=== PATIENT | female | born 1965 | race Two or more races ===

== ENCOUNTER 2023-03-31 06:57 | Inpatient (IN) | payer BC ==
[2023-03-31] MEDS ORDERED: SODIUM CHLORIDE 0.9% 1,000 ML IV STA (07:44)
[2023-03-31] MEDS ORDERED: ONDANSETRON 4 MG/2 ML VIAL IVP STA (07:44)
[2023-03-31] MEDS ORDERED: MORPHINE SULFATE 4 MG/ML SYRINGE IVP STA (07:45)
[2023-03-31] MEDS ORDERED: FAMOTIDINE 20 MG/2 ML VIAL IV STA (07:45)
--- NOTE | 2023-03-31 07:47 | ED ---
General Adult HPI - General Chief complaint: Abdominal Pain Stated complaint: Stomach pain Time Seen by Provider: 03/31/23 07:24 Source: patient, RN notes reviewed Mode of arrival: ambulatory Limitations: no limitations - History of Present Illness Initial comments: Patient is a pleasant 58-year-old female presenting to the emergency department with concerns for abdominal pain. Onset of symptoms was around 11 last night. Patient has had nausea with several episodes of vomiting. Patient does have ostomy bag secondary to history of metastatic bladder cancer to the colon. Patient states no change in output from her ostomy bag. No fevers. Symptoms are not chronic. - Related Data Allergies Allergy/AdvReac Type Severity Reaction Status Date / Time No Known Allergies Allergy Verified 03/31/23 07:18 Review of Systems ROS Statement: Those systems with pertinent positive or pertinent negative responses have been documented in the HPI. ROS Other: All systems not noted in ROS Statement are negative. Constitutional: Denies: fever Eyes: Denies: eye pain ENT: Denies: ear pain Respiratory: Denies: cough Cardiovascular: Denies: chest pain Endocrine: Denies: fatigue Gastrointestinal: Reports: as per HPI, abdominal pain, nausea, vomiting Musculoskeletal: Denies: back pain Past Medical History Past Medical History: Cancer Additional Past Medical History / Comment(s): bladder cancer History of Any Multi-Drug Resistant Organisms: None Reported Past Surgical History: Bowel Resection Additional Past Surgical History / Comment(s): ileostomy and urostomy Past Psychological History: Anxiety, Depression Smoking Status: Current every day smoker Past Alcohol Use History: Occasional Past Drug Use History: None Reported General Exam Limitations: no limitations General appearance: alert, in no apparent distress Head exam: Present: normocephalic Eye exam: Present: normal appearance Neck exam: Present: normal inspection Respiratory exam: Present: normal lung sounds bilaterally Cardiovascular Exam: Present: regular rate, normal rhythm Expanded Peripheral pulses: 2+: Dorsalis Pedis (R), Dorsalis Pedis (L) GI/Abdominal exam: Present: soft, tenderness (Mild tenderness epigastric. Mild to moderate tenderness lower abdomen), normal bowel sounds. Absent: distended, guarding, rebound, rigid, pulsatile mass Extremities exam: Present: normal inspection Neurological exam: Present: alert Psychiatric exam: Present: normal affect, normal mood Skin exam: Present: normal color Course Vital Signs 03/31/23 07:12 Temperature 98.9 F Pulse Rate 89 Respiratory 22 Rate Blood Pressure 168/79 O2 Sat by Pulse 99 Oximetry Medical Decision Making - Medical Decision Making Was pt. sent in by a medical professional or institution (SIRENA Waite, TRANSFORMER ASSEMBLY SUPERVISOR, urgent care, hospital, or intermediate...) When possible be specific @ -No Did you speak to anyone other than the patient for history (EMS, parent, family, police, friend...)? What history was obtained from this source @ - is present and helps provide history including previous surgeries out of state Did you review nursing and triage notes (agree or disagree)? Why? @ -I reviewed and agree with nursing and triage notes Were old charts reviewed (outside hosp., previous admission, EMS record, old EKG, old radiological studies, urgent care reports/EKG's, intermediate records)? Report findings @ -No old charts available when I did try to review Differential Diagnosis (chest pain, altered mental status, abdominal pain women, abdominal pain men, vaginal bleeding, weakness, fever, dyspnea, syncope, headache, dizziness, GI bleed, back pain, seizure, CVA, palpatations, mental health, musculoskeletal)? @ -Differential Abdominal Pain Women: Appendicitis, Cholecystitis, diverticulosis, ischemic bowel, pancreatitis, hepatitis, UTI, gastroenteritis, AAA, incarcerated hernia, bowel obstruction, constipation, inflammatory bowel, hepatitis, peptic ulcer disease, splenic infarction, perforated viscus, vulvitis, ovarian torsion, PID, kidney stone, placenta abruption, this is not meant to be an all-inclusive list EKG interpreted by me (3pts min.). @ -As above X-rays interpreted by me (1pt min.). @ -None done CT interpreted by me (1pt min.). @ -Computed tomography scan shows bowel obstruction. This was discussed with radiologist. Dr. Bar U/S interpreted by me (1pt. min.). @ -None done What testing was considered but not performed or refused? (CT, X-rays, U/S, labs)? Why? @ -None What meds were considered but not given or refused? Why? @ -None Did you discuss the management of the patient with other professionals (professionals i.e. SIRENA Waite, TRANSFORMER ASSEMBLY SUPERVISOR, lab, RT, psych nurse, social work instructor, power system engineer, teacher, staff command and control officer, case investigator)? Give summary @ -Case was discussed with Dr. Bar regarding CT results. Case also discussed with Dr. Prado, who will admit covering hospital call Was smoking cessation discussed for >3mins.? @ -No Was critical care preformed (if so, how long)? @ -No Were there social determinants of health that impacted care today? How? (Homelessness, low income, unemployed, alcoholism, drug addiction, transportation, low edu. Level, literacy, decrease access to med. care, alf, rehab)? @ -No Was there de-escalation of care discussed even if they declined (Discuss DNR or withdrawal of care, Hospice)? DNR status @ -No What co-morbidities impacted this encounter? (DM, HTN, Smoking, COPD, CAD, Cancer, CVA, ARF, Chemo, Hep., AIDS, mental health diagnosis, sleep apnea, morbid obesity)? @ -None Was patient admitted / discharged? Hospital course, mention meds given and route, prescriptions, significant lab abnormalities, going to OR and other pertinent info. @ -Patient reevaluated and feeling better. Discomfort and nausea and mild. Patient and family updated on results and plan. Patient will be admitted with surgical consult. Admission orders written. Undiagnosed new problem with uncertain prognosis? @ -No Drug Therapy requiring intensive monitoring for toxicity (Heparin, Nitro, Insulin, Cardizem)? @ -No Were any procedures done? @ -No Diagnosis/symptom? @ -Small bowel obstruction Acute, or Chronic, or Acute on Chronic? @ -Acute Uncomplicated (without systemic symptoms) or Complicated (systemic symptoms)? @ -default Side effects of treatment? @ -No Exacerbation, Progression, or Severe Exacerbation? @ -No Poses a threat to life or bodily function? How? (Chest pain, [place], [place], pneumonia, PE, COPD, DKA, ARF, appy, cholecystitis, CVA, Diverticulitis, Homicidal, Suicidal, threat to staff... and all critical care pts) @ -Threat to bowel function and concern for potential complications and infection if symptoms worsen. - Lab Data Result diagrams: 03/31/23 08:00 03/31/23 08:00 Lab Results 03/31/23 03/31/23 03/31/23 Range/Units 08:00 08:00 08:00 WBC 12.1 H (3.8-10.6) k/uL RBC 5.38 (3.80-5.40) m/uL Hgb 17.2 H (11.4-16.0) gm/dL Hct 51.6 H (34.0-46.0) % MCV 96.0 (80.0-100.0) fL MCH 32.0 (25.0-35.0) pg MCHC 33.4 (31.0-37.0) g/dL RDW 12.9 (11.5-15.5) % Plt Count 293 (150-450) k/uL MPV 7.8 PT 9.7 (9.0-12.0) sec INR 0.9 (<1.2) APTT 23.2 (22.0-30.0) sec Sodium 143 (137-145) mmol/L Potassium 5.1 (3.5-5.1) mmol/L Chloride 102 (98-107) mmol/L Carbon Dioxide 26 (22-30) mmol/L Anion Gap 15 mmol/L BUN 34 H (7-17) mg/dL Creatinine 1.25 H (0.52-1.04) mg/dL Est GFR (CKD-EPI)AfAm 54 (>60 ml/min/1.73 sqM) Est GFR (CKD-EPI)NonAf 47 (>60 ml/min/1.73 sqM) Glucose 201 H (74-99) mg/dL Calcium 11.3 H (8.4-10.2) mg/dL Total Bilirubin 0.6 (0.2-1.3) mg/dL AST 40 H (14-36) U/L ALT 27 (4-34) U/L Alkaline Phosphatase 130 H (38-126) U/L Total Protein 9.1 H (6.3-8.2) g/dL Albumin 5.4 H (3.5-5.0) g/dL Amylase 137 H (30-110) U/L Lipase 235 (23-300) U/L Disposition Clinical Impression: Small bowel obstruction Disposition: ADMITTED IP TO THIS [facility] Condition: Serious Is patient prescribed a controlled substance at d/c from ED?: No Referrals: Nonstaff,Physician [Primary Care Provider] - 1-2 days Time of Disposition: 09:01
[2023-03-31 08:35] LABS: HCT 51.6 % (34.0-46.0); HGB 17.2 gm/dL (11.4-16.0); INR 0.9 (<1.2); MCHC 33.4 g/dL (31.0-37.0); Mean Platelet Volume 7.8; Partial Thromboplastin Time 23.2 sec (22.0-30.0); Platelet Count 293 k/uL (150-450); Prothrombin Time 9.7 sec (9.0-12.0); RBC 5.38 m/uL (3.80-5.40); RDW 12.9 % (11.5-15.5); WBC 12.1 k/uL (3.8-10.6)
[2023-03-31 08:36] LABS: ALT 27 U/L (4-34); African American GFR (CKD) 54 (>60 ml/min/1.73 sqM); Albumin 5.4 g/dL (3.5-5.0); Amylase 137 U/L (30-110); Blood Urea Nitrogen 34 mg/dL (7-17); Carbon Dioxide 26 mmol/L (22-30); Glucose 201 mg/dL (74-99); Lipase 235 U/L (23-300); Non-African American GFR(CKD) 47 (>60 ml/min/1.73 sqM); Potassium 5.1 mmol/L (3.5-5.1); Sodium 143 mmol/L (137-145); Total Bilirubin 0.6 mg/dL (0.2-1.3); Total Protein 9.1 g/dL (6.3-8.2)
[2023-03-31 08:38] LABS: AST 40 U/L (14-36); Alkaline Phosphatase 130 U/L (38-126); Anion Gap 15 mmol/L; Calcium 11.3 mg/dL (8.4-10.2); Chloride 102 mmol/L (98-107)
--- NOTE | 2023-03-31 08:53 | CT ---
EXAMINATION TYPE: CT abdomen pelvis w con DATE OF EXAM: 03/31/2023 COMPARISON: None INDICATION: Abdomen pain with nausea and vomiting since yesterday. DLP: 544.7 mGycm, Automated exposure control for dose reduction was used. CONTRAST: 100 ml mL of Isovue 300. Study performed without Oral Contrast TECHNIQUE: Axial images were obtained from above the diaphragm to the pubic rami in the axial plane a t 5 mm thick sections. Reconstructed images are reviewed on the computer in the coronal plane. FINDINGS: Limited CT sections are obtained the lung bases. The lung bases are clear. CT ABDOMEN: Liver: A couple small cysts are present. Spleen: Normal Pancreas: Normal Adrenal glands: The adrenal glands are normal. Gallbladder: Normal Kidneys: No masses are evident. No hydronephrosis is present. There is an extrarenal pelvis on the le ft. There are bilateral cortical renal cysts present. Delayed images were obtained through the kidn eys, which remain unremarkable. Aorta: Vascular calcification is within the aorta. Inferior vena cava: Normal. CT PELVIS: There are multiple dilated small bowel loops containing fluid. This extends into the pelvis zone and transition appears to be an anastomosis in the right lower quadrant. Example image series 202 image 4 8. Studies without oral contrast. Lower quadrant ostomy evident Appendix: Not identified Urinary bladder: Not identified. Right lower quadrant ostomy may be present. Genitourinary structures: Uterus and ovaries are not identified Osseous structures: No suspicious lytic or sclerotic lesions. IMPRESSION: 1. Small bowel obstruction appears to be at the anastomosis of small bowel the right lower quadrant of the pelvis. Report was called to the emergency room addition by Dr. Bar by telephone at time o f interpretation.
[2023-03-31] MEDS ORDERED: AMPICILLIN-SULBACTAM 1.5 GM in SODIUM CHLORIDE 0.9% 50 ML IVPB STA (09:03)
[2023-03-31] MEDS ORDERED: NALOXONE 0.4 MG/ML 1 ML VIAL IV PRN (10:44)
[2023-03-31] MEDS ORDERED: ONDANSETRON 4 MG/2 ML VIAL IVP PRN (10:44)
[2023-03-31] MEDS ORDERED: ACETAMINOPHEN TAB 325 MG TAB PO PRN (10:44)
--- NOTE | 2023-03-31 11:00 | P.HPIM ---
History of Present Illness H&P Date: 03/31/23 History of Presenting Illness: Patient is a very pleasant 58-year-old female with a past medical history of CVA in 2015 and metastatic bladder cancer with metastasis to colon status post multiple surgeries resulting in urostomy and colostomy placement in 2017. She presented to the emergency department with a chief complaint of abdominal pain. Patient reports she began experiencing the sudden onset pain to lower abdomen yesterday evening around 11 PM accompanied by nausea and multiple episodes of vomiting. Patient describes this pain as a "contraction". She reports pain begins in lower abdomen and radiates upwards throughout her entire abdomen, s tating "just like a labor contraction". She denies having any changes in her urostomy or colostomy output. She denies having any fevers, chills, diaphoresis, chest pain, palpitations, shortness of breath, hematuria, melena, or hematochezia. She underwent full evaluation in the emergency department. CBC completed showing mild cytosis with WBC count of 12.1 and polycythemia with hemoglobin of 17.2. BMP concerning for acute kidney injury with BUN of 34, creatinine 1.25, and GFR 47, unknown baseline renal function. Liver profile showing elevated AST of 40 and alkaline phosphatase of 130. Amylase also elevated at 137 with a normal lipase of 235. Lactate 2.1. CT abdomen and pelvis with IV contrast was completed showing small bowel obstruction appearing to be at anastomosis of the small bowel in the right lower quadrant. Patient was given 1 L bolus of 0.9% normal saline followed by maintenance infusion at 75 mL per hour and initiation of IV antibiotics with Unasyn 1.5 g. Discussed p atient's history, complaints, physical exam findings, laboratory analysis, and imaging results in detail with the ED physician. Patient admitted under our services with consultation to general surgery. Review of systems: Pertinent positives and negatives as discussed in HPI, a complete review of systems was performed and all other systems are negative. Physical exam: Vital signs reviewed and stable. General: Nontoxic, no distress and appears stated age. Derm: Skin warm and dry, normal coloration for ethnicity. Head: Atraumatic, normocephalic and symmetric. Eyes: EOMs intact, no lid lag, and anicteric sclera Mouth: no lip lesions, mucus membranes moist Cardiovascular: regular rate and rhythm with normal S1S2, no murmur, positive posterior tibial pulses bilaterally, and cap refill < 2 seconds. Lungs: Respirations even, regular, and unlabored on room air. Lungs CTA bilaterally, no rhonchi, no rales, no wheezing, and no accessory muscle usage. Abdominal: soft with diffuse tenderness upon palpation. Urostomy bag RLQ and colostomy bag LLQ Ext: ROM intact. No gross muscle atrophy, no edema, no contractures Neuro: Speech clear, face symmetrical and CN II-XII grossly intact with no noted focal neuro deficits Psych: Alert and oriented to person, place, time, and situation. Appropriate and pleasant affect. Assessment and Plan of Care: 58-year-old female past medical history of metastatic bladder cancer with metastasis to colon status post multiple surgeries resulting in urostomy and colostomy placement presenting with acute onset lower abdominal pain/cramping accompanied by intractable nausea and vomiting. Data reviewed: -Labs completed and reviewed. CBC completed showing mild cytosis with WBC count of 12.1 and polycythemia with hemoglobin of 17.2. BMP concerning for acute kidney injury with BUN of 34, creatinine 1.25, and GFR 47, unknown baseline renal function. Liver profile showing elevated AST of 40 and alkaline phosphatase of 130. Amylase also elevated at 137 with a normal lipase of 235. Lactate 2.1. -Vital signs reviewed. Blood pressure 168/79, heart rate 89, respiratory rate 22, temp 98.9F, SpO2 of 99% on room air. Imaging reviewed: -CT abdomen and pelvis with IV contrast was completed showing small bowel obstruction appearing to be at anastomosis of the small bowel in the right lower quadrant. Small bowel obstruction Lactic acidosis SIRS Elevated liver enzymes Acute kidney injury Leukocytosis History of metastatic bladder cancer status post urostomy and colostomy placement -General surgery consulted, appreciate recommendations. -NPO with ice chips and medications only pending further eval by surgery. -Order placed for IV fluid maintenance infusion at 100 mL per hour. -IV antibiotics with Unasyn 1.5 g Q8 hrs. -Antiemetics with Zofran q8 hours as needed for nausea and vomiting. -Symptomatic care and pain management with scheduled bentyl 10 mg QID and morphine 4 mg IVP every 4 hours as needed for severe pain. -If persistent nausea and vomiting, pt will need NG tube placement to low intermittent suction for bowel decompression. Discussed patient's history, complaints, physical exam findings, laboratory analysis, and imaging results in detail with the ED physician. Patient admitted under our services to general medical unit with consultation to general surgery. Anticipated greater than 2 midnight stay for evaluation of small bowel obstruction. CODE STATUS: Full Code DVT prophylaxis: Lovenox Discussed with: Patient, ED physician, Pt's family at bedside and RN. Anticipated discharge date: Clinical course to determine Anticipated discharge place: Home Patient was seen independently by Nurse Practitioner. This document was prepared using [employer] dictation software. Please allow for errors in caseworker intake while rare they do occur. Thomas Tirado NP rendered care for this patient independently, reviewed the findings and plan as documented in the note above. I did not physically speak with or examine the patient on this date. Past Medical History Past Medical History: Cancer Additional Past Medical History / Comment(s): bladder cancer History of Any Multi-Drug Resistant Organisms: None Reported Past Surgical History: Bowel Resection Additional Past Surgical History / Comment(s): ileostomy and urostomy Past Psychological History: Anxiety, Depression Smoking Status: Current every day smoker Past Alcohol Use History: Occasional Past Drug Use History: None Reported - Past Family History Sister(s) Family Medical History: Cancer Mother Family Medical History: Coronary Artery Disease (CAD) Medications and Allergies Allergies Allergy/AdvReac Type Severity Reaction Status Date / Time No Known Allergies Allergy Verified 03/31/23 14:01 Physical Exam Vitals: Vital Signs Temp Pulse Resp BP Pulse Ox 03/31/23 07:12 98.9 F 89 22 168/79 99 Intake and Output 03/30/23 03/31/23 03/31/23 22:59 06:59 14:59 Other: Weight 47.627 kg Results CBC & Chem 7: 04/01/23 09:01 04/01/23 09:01 Labs: Abnormal Lab Results - Last 24 Hours (Table) 03/31/23 03/31/23 Range/Units 08:00 08:00 WBC 12.1 H (3.8-10.6) k/uL Hgb 17.2 H (11.4-16.0) gm/dL Hct 51.6 H (34.0-46.0) % BUN 34 H (7-17) mg/dL Creatinine 1.25 H (0.52-1.04) mg/dL Glucose 201 H (74-99) mg/dL Calcium 11.3 H (8.4-10.2) mg/dL AST 40 H (14-36) U/L Alkaline Phosphatase 130 H (38-126) U/L Total Protein 9.1 H (6.3-8.2) g/dL Albumin 5.4 H (3.5-5.0) g/dL Amylase 137 H (30-110) U/L
[2023-03-31] MEDS ORDERED: DICYCLOMINE 10 MG/ML 2 ML AMP IM STA (11:05)
[2023-03-31] MEDS ORDERED: DEXTROSE 50% SYRINGE 50 ML IVP PRN ×2 (12:15)
[2023-03-31] MEDS: SODIUM CHLORIDE 0.9% 1,000 ML IV SCH (12:28)
[2023-03-31 12:56] LABS: Band Neutrophils % 14 %; Lymphocytes # (M) 0.48 k/uL (1.0-4.8); Monocytes # (M) 0.24 k/uL (0-1.0); Neutrophils % (M) 80 %; Nucleated Red Blood Cells 0 /100 WBC (0-0); Total Cells Counted 100
[2023-03-31 12:57] LABS: RBC Morphology Normal
[2023-03-31 12:59] LABS: Toxic Vacuolation Present
[2023-03-31] MEDS: DICYCLOMINE 10 MG CAP PO SCH ×3 (13:04→22:03)
--- NOTE | 2023-03-31 14:13 | P.GSCN ---
History of Present Illness Consult date: 03/31/23 History of present illness: She reports that she does not live in town. She was just visiting. She repeorts eating grapes that triggered intractable nausea and vomiting. She is supposed to be on a low fiber diet but ate grapes with skin. She has complicated surgical history of bladder cancer including has a urostomy and colostomy. Her colostomy bag has stool. She has a filter prevent air in her colostomy bag. She reports improvement of her symptoms. She has chronic bowel obstructions at least 1-2x per year all treated without surgery. CT reviewed. She is clinically feeling better. She is tolerating water. Recommend repeat abdominal films, clear liquids pending results. Likely discharge pending clinical stablity in time for her flight Sunday. Follow up locally with her GI doctor/surgeon Past Medical History Past Medical History: Cancer Additional Past Medical History / Comment(s): bladder cancer History of Any Multi-Drug Resistant Organisms: None Reported Past Surgical History: Bowel Resection Additional Past Surgical History / Comment(s): ileostomy and urostomy Past Psychological History: Anxiety, Depression Smoking Status: Current every day smoker Past Alcohol Use History: Occasional Past Drug Use History: None Reported Medications and Allergies Home Medications Medication Instructions Recorded Confirmed Type Aspirin EC [Ecotrin Low Dose] 81 mg PO DAILY 03/31/23 03/31/23 History Cholecalciferol [Vitamin D3 (125 125 mcg PO DAILY 03/31/23 03/31/23 History Mcg = 5000 Iu)] Rosuvastatin Calcium [Crestor] 40 mg PO DAILY 03/31/23 03/31/23 History Venlafaxine HCl ER [Effexor Xr] 150 mg PO DAILY 03/31/23 03/31/23 History Zinc Gluconate [Zinc] 50 mg PO DAILY 03/31/23 03/31/23 History Allergies Allergy/AdvReac Type Severity Reaction Status Date / Time No Known Allergies Allergy Verified 03/31/23 14:01 Surgical - Exam Vital Signs Temp Pulse Resp BP Pulse Ox 98.9 F 89 22 168/79 99 03/31/23 07:12 03/31/23 07:12 03/31/23 07:12 03/31/23 07:12 03/31/23 07:12 Results - Labs 03/31/23 08:00 03/31/23 08:00 Abnormal Lab Results - Last 24 Hours (Table) 03/31/23 03/31/23 03/31/23 Range/Units 08:00 08:00 09:27 WBC 12.1 H (3.8-10.6) k/uL Hgb 17.2 H (11.4-16.0) gm/dL Hct 51.6 H (34.0-46.0) % Neutrophils # (Manual) 11.30 H (1.3-7.7) k/uL Lymphocytes # (Manual) 0.48 L (1.0-4.8) k/uL BUN 34 H (7-17) mg/dL Creatinine 1.25 H (0.52-1.04) mg/dL Glucose 201 H (74-99) mg/dL Plasma Lactic Acid Levi 2.1 H* (0.7-2.0) mmol/L Calcium 11.3 H (8.4-10.2) mg/dL AST 40 H (14-36) U/L Alkaline Phosphatase 130 H (38-126) U/L Total Protein 9.1 H (6.3-8.2) g/dL Albumin 5.4 H (3.5-5.0) g/dL Amylase 137 H (30-110) U/L Diabetes panel 03/31/23 Range/Units 08:00 Sodium 143 (137-145) mmol/L Potassium 5.1 (3.5-5.1) mmol/L Chloride 102 (98-107) mmol/L Carbon Dioxide 26 (22-30) mmol/L BUN 34 H (7-17) mg/dL Creatinine 1.25 H (0.52-1.04) mg/dL Glucose 201 H (74-99) mg/dL Calcium 11.3 H (8.4-10.2) mg/dL AST 40 H (14-36) U/L ALT 27 (4-34) U/L Alkaline Phosphatase 130 H (38-126) U/L Total Protein 9.1 H (6.3-8.2) g/dL Albumin 5.4 H (3.5-5.0) g/dL Calcium panel 03/31/23 Range/Units 08:00 Calcium 11.3 H (8.4-10.2) mg/dL Albumin 5.4 H (3.5-5.0) g/dL Pituitary panel 03/31/23 Range/Units 08:00 Sodium 143 (137-145) mmol/L Potassium 5.1 (3.5-5.1) mmol/L Chloride 102 (98-107) mmol/L Carbon Dioxide 26 (22-30) mmol/L BUN 34 H (7-17) mg/dL Creatinine 1.25 H (0.52-1.04) mg/dL Glucose 201 H (74-99) mg/dL Calcium 11.3 H (8.4-10.2) mg/dL Adrenal panel 03/31/23 Range/Units 08:00 Sodium 143 (137-145) mmol/L Potassium 5.1 (3.5-5.1) mmol/L Chloride 102 (98-107) mmol/L Carbon Dioxide 26 (22-30) mmol/L BUN 34 H (7-17) mg/dL Creatinine 1.25 H (0.52-1.04) mg/dL Glucose 201 H (74-99) mg/dL Calcium 11.3 H (8.4-10.2) mg/dL Total Bilirubin 0.6 (0.2-1.3) mg/dL AST 40 H (14-36) U/L ALT 27 (4-34) U/L Alkaline Phosphatase 130 H (38-126) U/L Total Protein 9.1 H (6.3-8.2) g/dL Albumin 5.4 H (3.5-5.0) g/dL
--- NOTE | 2023-03-31 16:29 | XR ---
EXAMINATION TYPE: XR abdomen 2V DATE OF EXAM: 03/31/2023 COMPARISON: None INDICATION: Bowel obstruction TECHNIQUE: Single view abdomen frontal upright view FINDINGS: There is nonspecific bowel gas within the pelvis. Please see CT abdomen and pelvis dictation same hemalatha e. Ostomy is in the right lower quadrant. Contrast is within the kidneys. Psoas margins are normal. No organomegaly is present. IMPRESSION: 1. Nonspecific bowel gas pattern. Dilated small bowel loops may be within the pelvis. Small bowel obs truction could be considered.
[2023-03-31] MEDS: AMPICILLIN-SULBACTAM 1.5 GM in SODIUM CHLORIDE 0.9% 50 ML IVPB SCH (17:05)
[2023-04-01] MEDS: SODIUM CHLORIDE 0.9% 1,000 ML IV SCH ×5 (00:58→20:12)
[2023-04-01] MEDS: AMPICILLIN-SULBACTAM 1.5 GM in SODIUM CHLORIDE 0.9% 50 ML IVPB SCH ×4 (01:07→23:25)
[2023-04-01 01:27] LABS: Glucose,Whole Blood 126 mg/dL (70-110)
[2023-04-01] MEDS: MORPHINE SULFATE 4 MG/ML SYRINGE IV PRN ×3 (04:00→23:30)
[2023-04-01 05:59] LABS: Glucose,Whole Blood 115 mg/dL (70-110)
[2023-04-01] MEDS: PANTOPRAZOLE 40 MG/10 ML VIAL IV SCH (08:44)
[2023-04-01] MEDS: ENOXAPARIN 40 MG/0.4 ML SYRINGE SQ SCH (08:44)
[2023-04-01] MEDS: ATORVASTATIN 80 MG TAB PO SCH (08:44)
[2023-04-01] MEDS: DICYCLOMINE 10 MG CAP PO SCH ×4 (08:46→21:00)
[2023-04-01] MEDS: VENLAFAXINE HCL ER 150 MG CAP PO SCH (08:46)
[2023-04-01 09:26] LABS: MCH 31.5 pg (25.0-35.0); MCHC 32.5 g/dL (31.0-37.0); Mean Platelet Volume 7.3; Platelet Count 218 k/uL (150-450); RBC 4.02 m/uL (3.80-5.40); RDW 12.6 % (11.5-15.5); WBC 6.7 k/uL (3.8-10.6)
[2023-04-01 09:40] LABS: Potassium 4.2 mmol/L (3.5-5.1)
[2023-04-01 09:43] LABS: ALT 19 U/L (4-34); AST 26 U/L (14-36); African American GFR (CKD) 70 (>60 ml/min/1.73 sqM); Albumin 3.3 g/dL (3.5-5.0); Alkaline Phosphatase 72 U/L (38-126); Amylase 63 U/L (30-110); Anion Gap 5 mmol/L; Blood Urea Nitrogen 22 mg/dL (7-17); Calcium 8.3 mg/dL (8.4-10.2); Carbon Dioxide 27 mmol/L (22-30); Chloride 106 mmol/L (98-107); Glucose 92 mg/dL (74-99); HGB 12.7 gm/dL (11.4-16.0); Lipase 47 U/L (23-300); Magnesium 1.8 mg/dL (1.6-2.3); Non-African American GFR(CKD) 61 (>60 ml/min/1.73 sqM); Sodium 138 mmol/L (137-145); Total Bilirubin 0.7 mg/dL (0.2-1.3); Total Protein 5.6 g/dL (6.3-8.2)
[2023-04-01 11:37] LABS: Glucose,Whole Blood 96 mg/dL (70-110)
--- NOTE | 2023-04-01 12:23 | P.PN ---
Subjective Progress Note Date: 04/01/23 She reports feeling better today. Has some mild abdominal cramps but tolerable. She is tolerating liquids. AXR independently reviewed with moderate resolution of prior bowel obstruction Hgb decrease likely dilutional from dehydration to re-hydrated state No signs of bleeding. PLAN: 1. Stable for discharge for flight home to [place] tomorrow 2. Recommend liquid diet in the interim 3. Follow up with local provider upon her arrival home 4. Recommend gas-x for discharge. Objective - Vital Signs Vital signs: Vital Signs Temp 98.3 F 04/01/23 08:40 Pulse 82 04/01/23 08:40 Resp 16 04/01/23 08:40 BP 118/72 04/01/23 08:40 Pulse Ox 93 L 04/01/23 08:40 FiO2 Intake & Output 03/31/23 04/01/23 04/01/23 18:59 06:59 18:59 Output Total 0 300 Balance 0 -300 Weight 47.627 kg Output: Urine 0 300 Other: Voiding Method Ileal Conduit (Right) - Labs CBC & Chem 7: 04/01/23 09:01 04/01/23 09:01 Labs: Abnormal Lab Results - Last 24 Hours (Table) 03/31/23 03/31/23 04/01/23 Range/Units 08:00 15:50 01:24 Neutrophils # (Manual) 11.30 H (1.3-7.7) k/uL Lymphocytes # (Manual) 0.48 L (1.0-4.8) k/uL BUN (7-17) mg/dL POC Glucose (mg/dL) 126 H (70-110) mg/dL Plasma Lactic Acid Levi 2.4 H* (0.7-2.0) mmol/L Calcium (8.4-10.2) mg/dL Total Protein (6.3-8.2) g/dL Albumin (3.5-5.0) g/dL 04/01/23 04/01/23 Range/Units 05:57 09:01 Neutrophils # (Manual) (1.3-7.7) k/uL Lymphocytes # (Manual) (1.0-4.8) k/uL BUN 22 H (7-17) mg/dL POC Glucose (mg/dL) 115 H (70-110) mg/dL Plasma Lactic Acid Levi (0.7-2.0) mmol/L Calcium 8.3 L (8.4-10.2) mg/dL Total Protein 5.6 L (6.3-8.2) g/dL Albumin 3.3 L (3.5-5.0) g/dL
[2023-04-01] MEDS: SIMETHICONE 40 MG/0.6 ML DROPS 2,000 MG/30 ML BOTTLE PO SCH ×3 (14:19→20:58)
--- NOTE | 2023-04-01 14:24 | P.PN ---
Subjective Progress Note Date: 04/01/23 Hospital Course: Patient is a very pleasant 58-year-old female with a past medical history of CVA in 2015 and metastatic bladder cancer with metastasis to colon status post multiple surgeries resulting in urostomy and colostomy placement in 2017. She presented to the emergency department with a chief complaint of abdominal pain. Patient reports she began experiencing the sudden onset pain to lower abdomen yesterday evening around 11 PM accompanied by nausea and multiple episodes of vomiting. Patient describes this pain as a "contraction". She reports pain begins in lower abdomen and radiates upwards throughout her entire abdomen, stating "just like a labor contraction". She denies having any changes in her urostomy or colostomy output. She denies having any fevers, chills, diaphoresis, chest pain, palpitations, shortness of breath, hematuria, melena, or hematochezia. She underwent full evaluation in the emergency department. CBC completed showing mild cytosis with WBC count of 12.1 and polycythemia with hemoglobin of 17.2. BMP concerning for acute kidney injury with BUN of 34, creatinine 1.25, and GFR 47, unknown baseline renal function. Liver profile showing elevated AST of 40 and alkaline phosphatase of 130. Amylase also elevated at 137 with a normal lipase of 235. Lactate 2.1. CT abdomen and pelvis with IV contrast was completed showing small bowel obstruction appearing to be at anastomosis of the small bowel in the right lower quadrant. Patient was given 1 L bolus of 0.9% normal saline followed by maintenance infusion at 75 mL per hour and initiation of IV antibiotics with Unasyn 1.5 g. Discussed patient's history, complaints, physical exam findings, laboratory analysis, and imaging results in detail with the ED physician. Patient was admitted under our services with consultation to general surgery. Follow-up abdominal x-ray was completed showing nonspecific bowel gas pattern with radiologist reporting dilated small bowel loops within the pelvis possibly secondary to small bowel obstruction Physical exam: Patient seen and fully evaluated at bedside this morning. She reports she was feeling improvement overnight but again this morning is back to having signific ant pain in bilateral lower quadrants radiating upwards. Patient requiring morphine IVP this morning for pain management. Vital signs reviewed and stable. General: Nontoxic, no distress and appears stated age. Derm: Skin warm and dry, normal coloration for ethnicity. Head: Atraumatic, normocephalic and symmetric. Eyes: EOMs intact, no lid lag, and anicteric sclera Mouth: no lip lesions, mucus membranes moist Cardiovascular: regular rate and rhythm with normal S1S2, no murmur, positive po sterior tibial pulses bilaterally, and cap refill < 2 seconds. Lungs: Respirations even, regular, and unlabored on room air. Lungs CTA bilaterally, no rhonchi, no rales, no wheezing, and no accessory muscle usage. Abdominal: soft with diffuse tenderness upon palpation. Urostomy bag RLQ and colostomy bag LLQ Ext: ROM intact. No gross muscle atrophy, no edema, no contractures Neuro: Speech clear, face symmetrical and CN II-XII grossly intact with no noted focal neuro deficits Psych: Alert and oriented to person, place, time, and situation. Appropriate and pleasant affect. Assessment and Plan of Care: 58-year-old female past medical history of metastatic bladder cancer with metastasis to colon status post multiple surgeries resulting in urostomy and colostomy placement presenting with acute onset lower abdominal pain/cramping accompanied by intractable nausea and vomiting. 04/01/23: Patient seen and fully evaluated at bedside this morning. She reports continued abdominal pain/discomfort in bilateral lower quadrants and decreased ostomy output. Patient has had minimal liquid stool output over the past 24 hours. She is tolerating ice chips and denies any further episodes of nausea or vomiting. Data reviewed: -Repeat lactate completed resulting at 0.8 status post IV fluid hydration. -Vital signs reviewed. Blood pressure 134/65, heart rate 81, respiratory rate 16, temp 98.4F, SpO2 of 98% on room air. Imaging reviewed: -Follow-up abdominal x-ray was completed showing nonspecific bowel gas pattern with radiologist reporting dilated small bowel loops within the pelvis possibly secondary to small bowel obstruction Small bowel obstruction Lactic acidosis SIRS Elevated liver enzymes Acute kidney injury Leukocytosis History of metastatic bladder cancer status post urostomy and colostomy placement -General surgery consulted, appreciate recommendations. -NPO with ice chips and medications only pending further recommendations by surgery. -Continue IV fluid maintenance infusion at 100 mL per hour, until diet is advance. -IV antibiotics with Unasyn 1.5 g Q8 hrs. -GI prophylaxis with Protonix 40 mg IVP daily -Antiemetics with Zofran q8 hours as needed for nausea and vomiting. -Symptomatic care and pain management with scheduled bentyl 10 mg QID and morphine 4 mg IVP every 4 hours as needed for severe pain. -If nausea and vomiting returns, pt will need NG tube placement to low intermittent suction for bowel decompression. CODE STATUS: Full Code DVT prophylaxis: Lovenox Discussed with: Patient, ED physician, Pt's family at bedside and RN. Anticipated discharge date: Clinical course to determine Anticipated discharge place: Home Patient was seen independently by Nurse Practitioner. This document was prepared using [employer] dictation software. Please allow for errors in independent video producer while rare they do occur. Thomas Tirado NP rendered care for this patient independently, reviewed the findings and plan as documented in the note above. I did not physically speak with or examine the patient on this date. Objective - Vital Signs Vital signs: Vital Signs Temp 98.4 F 04/01/23 02:00 Pulse 81 04/01/23 02:00 Resp 16 04/01/23 02:00 BP 134/65 04/01/23 02:00 Pulse Ox 98 04/01/23 02:00 FiO2 Intake & Output 03/31/23 04/01/23 04/01/23 18:59 06:59 18:59 Output Total 0 Balance 0 Weight 47.627 kg Output: Urine 0 - Labs CBC & Chem 7: 04/01/23 09:01 04/01/23 09:01 Labs: Abnormal Lab Results - Last 24 Hours (Table) 03/31/23 03/31/23 03/31/23 Range/Units 08:00 08:00 09:27 WBC 12.1 H (3.8-10.6) k/uL Hgb 17.2 H (11.4-16.0) gm/dL Hct 51.6 H (34.0-46.0) % Neutrophils # (Manual) 11.30 H (1.3-7.7) k/uL Lymphocytes # (Manual) 0.48 L (1.0-4.8) k/uL BUN 34 H (7-17) mg/dL Creatinine 1.25 H (0.52-1.04) mg/dL Glucose 201 H (74-99) mg/dL POC Glucose (mg/dL) (70-110) mg/dL Plasma Lactic Acid Levi 2.1 H* (0.7-2.0) mmol/L Calcium 11.3 H (8.4-10.2) mg/dL AST 40 H (14-36) U/L Alkaline Phosphatase 130 H (38-126) U/L Total Protein 9.1 H (6.3-8.2) g/dL Albumin 5.4 H (3.5-5.0) g/dL Amylase 137 H (30-110) U/L 03/31/23 04/01/23 04/01/23 Range/Units 15:50 01:24 05:57 WBC (3.8-10.6) k/uL Hgb (11.4-16.0) gm/dL Hct (34.0-46.0) % Neutrophils # (Manual) (1.3-7.7) k/uL Lymphocytes # (Manual) (1.0-4.8) k/uL BUN (7-17) mg/dL Creatinine (0.52-1.04) mg/dL Glucose (74-99) mg/dL POC Glucose (mg/dL) 126 H 115 H (70-110) mg/dL Plasma Lactic Acid Levi 2.4 H* (0.7-2.0) mmol/L Calcium (8.4-10.2) mg/dL AST (14-36) U/L Alkaline Phosphatase (38-126) U/L Total Protein (6.3-8.2) g/dL Albumin (3.5-5.0) g/dL Amylase (30-110) U/L
[2023-04-01 15:11] VITALS: RESP 18
[2023-04-01 16:28] LABS: Glucose,Whole Blood 102 mg/dL (70-110)
[2023-04-01 20:25] LABS: Glucose,Whole Blood 111 mg/dL (70-110)
[2023-04-02 00:03] LABS: Glucose,Whole Blood 86 mg/dL (70-110)
[2023-04-02] MEDS: SODIUM CHLORIDE 0.9% 1,000 ML IV SCH (05:39)
[2023-04-02 06:22] LABS: Glucose,Whole Blood 93 mg/dL (70-110)
[2023-04-02 09:36] VITALS: BP 119/75; PULSE 69; TEMP 98.1
[2023-04-02] MEDS: AMPICILLIN-SULBACTAM 1.5 GM in SODIUM CHLORIDE 0.9% 50 ML IVPB SCH (09:36)
[2023-04-02] MEDS: DICYCLOMINE 10 MG CAP PO SCH ×2 (09:37→12:18)
[2023-04-02] MEDS: ENOXAPARIN 40 MG/0.4 ML SYRINGE SQ SCH (09:37)
[2023-04-02] MEDS: VENLAFAXINE HCL ER 150 MG CAP PO SCH (09:37)
[2023-04-02] MEDS: PANTOPRAZOLE 40 MG/10 ML VIAL IV SCH (09:37)
[2023-04-02] MEDS: ATORVASTATIN 80 MG TAB PO SCH (09:37)
[2023-04-02] MEDS: SIMETHICONE 40 MG/0.6 ML DROPS 2,000 MG/30 ML BOTTLE PO SCH ×2 (09:43→12:18)
--- NOTE | 2023-04-02 10:40 | P.DS ---
Providers Date of admission: 03/31/23 10:44 Expected date of discharge: 04/02/23 Attending physician: Cornelio Barry MD Consults: 03/31/23 10:44 Consult Physician Urgent Consulting Provider: Grace Dennison Consult Reason/Comments: sbo Do you want consulting provider notified?: Yes Primary care physician: Physician Nonstaff Hospital Course: Discharge Diagnosis: Small bowel obstruction. General surgery clearing patient from surgical standpoint. Patient was instructed to maintain a clear liquid diet until follow-up with her surgeon in [place]. Patient has scheduled flight at 3 PM today. She is no longer vomiting, denies any further abdominal pain or discomfort, and is tolerating clear liquid intake, passing flatus and having small amount of liquid output in ostomy bag. . Lactic acidosis, resolved SIRS Elevated liver enzymes, resolved after IV fluid hydration Acute kidney injury, resolved after IV fluid hydration. Leukocytosis, resolved. Believed to be reactive. Initially 12.1 upon discharge WBC count of 6.7. History of metastatic bladder cancer status post urostomy and colostomy placement Hospital Course: Patient is a very pleasant 58-year-old female with a past medical history of CVA in 2015 and metastatic bladder cancer with metastasis to colon status post multiple surgeries resulting in urostomy and colostomy placement in 2017. She presented to the emergency department with a chief complaint of abdominal pain. Patient reports she began experiencing the sudden onset pain to lower abdomen yesterday evening around 11 PM accompanied by nausea and multiple episodes of vomiting. Patient describes this pain as a "contraction". She reports pain begins in lower abdomen and radiates upwards throughout her entire abdomen, stating "just like a labor contraction". She denies having any changes in her urostomy or colostomy output. She denies having any fevers, chills, diaphoresis, chest pain, palpitations, shortness of breath, hematuria, melena, or hematochezia. She underwent full evaluation in the emergency department. CBC completed showing mild cytosis with WBC count of 12.1 and polycythemia with hemoglobin of 17.2. BMP concerning for acute kidney injury with BUN of 34, creatinine 1.25, and GFR 47, unknown baseline renal function. Liver profile showing elevated AST of 40 and alkaline phosphatase of 130. Amylase also elevated at 137 with a normal lipase of 235. Lactate 2.1. CT abdomen and pelvis with IV contrast was completed showing small bowel obstruction appearing to be at anastomosis of the small bowel in the right lower quadrant. Patient was given 1 L bolus of 0.9% normal saline followed by maintenance infusion at 75 mL per hour and initiation of IV antibiotics with Unasyn 1.5 g. Discussed patient's history, complaints, physical exam findings, laboratory analysis, and imaging results in detail with the ED physician. Patient was admitted under our services with consultation to general surgery. Follow-up abdominal x-ray was completed showing nonspecific bowel gas pattern with radiologist reporting dilated small bowel loops within the pelvis possibly secondary to small bowel obstruction. Patient was placed on bowel rest and IV fluid hydration. Diet advance to clear liquid and. Patient tolerating well. Patient requesting discharge as she was in [place] and has a flight at 3 PM today. General surgery clearing patient from surgical standpoint and recommending outpatient follow-up with her surgeon. Patient was instructed to maintain a clear liquid diet until follow-up with her surgeon in [place]. Patient has scheduled flight at 3 PM today. She is no longer vomiting, denies any further abdominal pain or d iscomfort, and is tolerating clear liquid intake, passing flatus and having small amount of liquid output in ostomy bag. . Physical exam: Vital signs reviewed and stable. General: Nontoxic, no distress and appears stated age. Derm: Skin warm and dry, normal coloration for ethnicity. Head: Atraumatic, normocephalic and symmetric. Eyes: EOMs intact, no lid lag, and anicteric sclera Mouth: no lip lesions, mucus membranes moist Cardiovascular: regular rate and rhythm with normal S1S2, no murmur, positive po sterior tibial pulses bilaterally, and cap refill < 2 seconds. Lungs: Respirations even, regular, and unlabored on room air. Lungs CTA bilaterally, no rhonchi, no rales, no wheezing, and no accessory muscle usage. Abdominal: soft nontender upon palpation. Urostomy bag RLQ normal output and colostomy bag LLQ with reported normal output Ext: ROM intact. No gross muscle atrophy, no edema, no contractures Neuro: Speech clear, face symmetrical and CN II-XII grossly intact with no noted focal neuro deficits Psych: Alert and oriented to person, place, time, and situation. Appropriate and pleasant affect. A total of 32 minutes of time were spent preparing this complex discharge summary. Pt was discharged on 04/02/23 at 10:36 AM. Patient was seen independently by Nurse Practitioner. This document was prepared using [employer] dictation software. Please allow for errors in sales technician while rare they do occur. Thomas Tirado NP rendered care for this patient independently, reviewed the findings and plan as documented in the note above. I did not physically speak with or examine the patient on this date. Patient Condition at Discharge: Stable Plan - Discharge Summary Discharge Rx Participant: Yes New Discharge Prescriptions: Continue Cholecalciferol [Vitamin D3 (125 Mcg = 5000 Iu)] 125 mcg PO DAILY Venlafaxine HCl ER [Effexor XR] 150 mg PO DAILY Aspirin EC [Ecotrin Low Dose] 81 mg PO DAILY Zinc Gluconate [Zinc] 50 mg PO DAILY Rosuvastatin Calcium [Crestor] 40 mg PO DAILY Discharge Medication List Aspirin EC [Ecotrin Low Dose] 81 mg PO DAILY 03/31/23 [History] Cholecalciferol [Vitamin D3 (125 Mcg = 5000 Iu)] 125 mcg PO DAILY 03/31/23 [History] Rosuvastatin Calcium [Crestor] 40 mg PO DAILY 03/31/23 [History] Venlafaxine HCl ER [Effexor XR] 150 mg PO DAILY 03/31/23 [History] Zinc Gluconate [Zinc] 50 mg PO DAILY 03/31/23 [History] Follow up Appointment(s)/Referral(s): Nonstaff,Physician [Primary Care Provider] - 1-2 days Patient Instructions/Handouts: Bowel Obstruction (DC), Ileus (DC) Activity/Diet/Wound Care/Special Instructions: Activity: As tolerated. Diet: Clear liquids only until follow-up with your surgeon in [place] and approval to advance your diet Special Instructions: It is of utmost importance for you to follow up with neurosurgeon within the next 2 days upon arrival to [place] today. Thank you for allowing us to participate in your care, it was truly a pleasure having you for our patient!!! Have a safe flight. Discharge Disposition: HOME SELF-CARE
--- NOTE | 2023-04-02 10:53 | P.PN ---
Subjective Progress Note Date: 04/02/23 CHIEF COMPLAINT: Small bowel obstruction HISTORY OF PRESENT ILLNESS: Patient is tolerating clear liquid diet. Abdominal pain has improved. Denies any nausea or vomiting. Patient feels ready for discharge. Afebrile. Hgb 6.7 PHYSICAL EXAM: VITAL SIGNS: Reviewed GENERAL: Well-developed in no acute distress. HEENT: No sclera icterus. Extraocular movements grossly intact. Moist buccal mucosa. Head is atraumatic, normocephalic. Hears conversational speech. No nasal drainage. NECK: Supple without lymphadenopathy. CHEST: Non-labored respirations and equal bilateral excursions. CARDIOVASCULAR: Palpable 2+ radial pulses. ABDOMEN: Soft. Nondistended. Nontender. MUSCULOSKELETAL: No clubbing or cyanosis. NEUROLOGIC: No focal or lateralizing signs. Cranial nerves II through XII grossly intact. PSYCH: Appropriate affect. Alert and oriented to person, place and time. SKIN: Well perfused. Good skin turgor. ASSESSMENT: 1. Small bowel obstruction 2. History of metastatic bladder cancer status post urostomy and colostomy PLAN: -Patient can be discharged from surgical standpoint -Recommend continuing a full liquid diet until seen by her local provider -Continue gas drops Physician Experienced Truck Driver note has been reviewed by physician. Signing provider agrees with the documented findings, assessment, and plan of care. Objective - Vital Signs Vital signs: Vital Signs Temp 98.1 F 04/02/23 09:32 Pulse 69 04/02/23 09:32 Resp 18 04/02/23 09:32 BP 119/75 04/02/23 09:32 Pulse Ox 94 L 04/02/23 09:32 FiO2 Intake & Output 04/01/23 04/02/23 04/02/23 18:59 06:59 18:59 Output Total 700 1425 Balance -700 -1425 Weight 47.627 kg Output: Urine 700 1425 Right Upper Abdomen 300 Other: Voiding Method Ileal Conduit (Right) Ileal Conduit (Right) - Labs CBC & Chem 7: 04/01/23 09:01 04/01/23 09:01 Labs: Abnormal Lab Results - Last 24 Hours (Table) 04/01/23 Range/Units 20:24 POC Glucose (mg/dL) 111 H (70-110) mg/dL Microbiology - Last 24 Hours (Table) 03/31/23 09:23 Blood Culture - Preliminary Blood 03/31/23 09:11 Blood Culture - Preliminary Blood
[2023-04-02 11:16] LABS: Glucose,Whole Blood 95 mg/dL (70-110)
== END 2023-04-02 13:18 | disposition home or self-care (01) | DRG 389 ==
LOC: EC 06:57 → 5NMEDONC 10:44 → 3SCARD 23:16
PROVIDERS: ADMIT Student in an Organized Health Care Education/Training Program; ATTEND Student in an Organized Health Care Education/Training Program
PROC: 0D9670Z Drainage of Stomach with Drainage Device, Via Natural or Artificial Opening (ICD-10-PCS; principal; 2023-03-31)
DX: K56.609 Unspecified intestinal obstruction, unspecified as to partial versus complete obstruction (principal); N17.9 Acute kidney failure, unspecified; R65.10 Systemic inflammatory response syndrome (SIRS) of non-infectious origin without acute organ dysfunction; D75.1 Secondary polycythemia; F17.210 Nicotine dependence, cigarettes, uncomplicated; F32.A Depression, unspecified; F41.9 Anxiety disorder, unspecified; Z79.82 Long term (current) use of aspirin; Z79.899 Other long term (current) drug therapy; Z85.51 Personal history of malignant neoplasm of bladder; Z86.73 Personal history of transient ischemic attack (TIA), and cerebral infarction without residual deficits; Z93.6 Other artificial openings of urinary tract status; Z93.3 Colostomy status; Z87.19 Personal history of other diseases of the digestive system
CPT/HCPCS: 36415; 74019; 74177; 80053; 82150; 83036; 83605; 83690; 83735; 85025; 85027; 85610; 85730; 87040; 96361; 96365; 96366; 96372; 96375; 99285